=== PATIENT | female | born 1970 | race Caucasian/White ===

== ENCOUNTER 2016-09-12 10:04 | Emergency (ER) | payer OTHER ==
[~2016-09-12] VITALS: Ht 162.6 cm; Wt 154.2 kg
[~2016-09-12 10:04] MED LIST: ATENOLOL100 M1 PO; CIPRO 500MG TA500 MG PO; DILAUDID2 MG PO; FLAGYL 25O MG250 M1 PO; LASIX20 MG PO
[2016-09-12] MEDS ORDERED: LEVOTHYROXINE50 MCG PO (11:15)
--- NOTE | 2016-09-12 11:29 | ED GI/GU/ABDOMINAL COMPLAINT ---
History of Present Illness General Chief Complaint: Abdominal Pain/Flank Pain Stated Complaint: ABD PAIN Source: patient, old records Exam Limitations: no limitations Vital Signs & Intake/Output Vital Signs & Intake/Output Vital Signs Date Time Temp Pulse Resp B/P Pulse O2 O2 Flow FiO2 Ox Delivery Rate 09/12 1626 99.6 82 18 116/72 98 Room Air 09/12 1420 98.9 80 18 120/78 98 Room Air 09/12 1315 98 Room Air 09/12 1210 98.8 73 18 112/57 98 Room Air 09/12 1016 97.8 73 16 135/81 98 Room Air Allergies Coded Allergies: acetaminophen (DOESNT WORK 09/12/16) Reconcile Medications Atenolol 100 MG TABLET 1 TAB PO DAILY HEART (Reported) Ciprofloxacin HCl (Cipro) 500 MG TABLET 1 TAB PO BID DIVERITULITIS Levothyroxine Sodium 50 MCG TABLET 1 TAB PO DAILY AC THYROID (Reported) Metronidazole (Flagyl) 500 MG TABLET 1 TAB PO TID DIVERTICULITIS Oxycodone HCl 5 MG TABLET 1-2 TAB PO Q6P PRN PAIN Triage Note: PT STATES SHE HAS HAD ABD PAIN SINCE YESTERDAY AFTERNOON. PT STATES SHE HAS DIARRHEA BUT NO NAUSEA. PT STATES SHE FELT BETTER AFTER SHE ATE YESTERDAY. Triage Nurses Notes Reviewed? yes ? n Is pt currently ? No Onset: Abrupt Duration: day(s):, getting worse, intermittent Timing: recent history Quality/Severity: moderate, sharpness, severe, pressure Location: lower abd Radiation: no radiation Activities at Onset: none Prior Abdominal Problems: similar symptoms No Modifying Factors: none HPI: 38-year-old female comes into emergency room with complaints of lower abdominal pain has been going on for the past few days but has been intermittent for the past couple weeks. Patient is a history of diverticulitis. Patient reports subjective fever at home. Denies any blood in her stool. Sharp pain in lower abdomen. Intermittent. Nonradiating. Denies any urinary symptoms. Patient reports over last couple days pain has gotten progressively worse. (JAE HERNANDEZ) Past History Travel History Traveled to [place] past 21 day No Medical History Any Pertinent Medical History? see below for history Cardiovascular: hypertension Respiratory: SLEEP APNEA Gastrointestinal: diverticulitis Renal: UTI Endocrine: hypothyroidism Surgical History Surgical History: non-contributory Psychosocial History What is your primary language Georgian Tobacco Use: Never used ETOH Use: occasional use Illicit Drug Use: denies illicit drug use Family History Hx Contributory? No (JAE HERNANDEZ) Review of Systems Review of Systems Constitutional: Reports: no symptoms. EENTM: Reports: no symptoms. Respiratory: Reports: no symptoms. Cardiovascular: Reports: no symptoms. GI: Reports: see HPI. Genitourinary: Reports: no symptoms. Musculoskeletal: Reports: no symptoms. Skin: Reports: no symptoms. Neurological/Psychological: Reports: no symptoms. Hematologic/Endocrine: Reports: no symptoms. Immunologic/Allergic: Reports: no symptoms. All Other Systems: Reviewed and Negative (JAE HERNANDEZ) Physical Exam Physical Exam General Appearance: well developed/nourished, alert, obese Head: atraumatic, normal appearance Eyes: Bilateral: normal appearance, EOMI. Ears, Nose, Throat, Mouth: hearing grossly normal Neck: normal inspection Respiratory: normal breath sounds, no respiratory distress Cardiovascular: regular rate/rhythm Gastrointestinal: soft, tenderness (right side abdomen) Back: normal inspection Extremities: normal range of motion Neurologic/Psych: awake, alert, oriented x 3, normal gait Skin: intact, normal color Core Measures ACS in differential dx? No Severe Sepsis Present: No Septic Shock Present: No (JAE HERNANDEZ) Progress Differential Diagnosis: AMI, appendicitis, bowel obstruction, colon cancer, cholecystitis, diverticulitis, gastritis, hepatitis, ischemic bowel, kidney stone, ovarian cyst, ovarian torsion, pancreatitis, PID/cervicitis, peptic ulcer , PUD/GERD, perforated viscous, SBO, UTI/pyelo Plan of Care: Orders Procedure Date/time Status URINE 09/12 112 Complete URINALYSIS 09/12 1128 Complete LIPASE 09/12 1128 Complete COMPREHENSIVE METABOLIC PANEL 09/12 1128 Complete CBC WITHOUT DIFFERENTIAL 09/12 112 Complete AMYLASE 09/12 1128 Complete Laboratory Tests 09/12/16 1149: Anion Gap 8, Estimated GFR > 60, BUN/Creatinine Ratio 17.1, Glucose 122 H, Calcium 9.0, Total Bilirubin 0.9, AST 18, ALT 34, Alkaline Phosphatase 55, Total Protein 6.7, Albumin 3.7, Globulin 3.0, Albumin/Globulin Ratio 1.2, Amylase 33, Lipase 77, CBC w Diff NO MAN DIFF REQ, RBC 4.39, MCV 88.7, MCH 30.4, RDW 12.7, MPV 8.9, Gran % 73.6, Lymphocytes % 17.8 L, Monocytes % 6.7, Eosinophils % 1.4, Basophils % 0.5, Absolute Granulocytes 7.9 H, Absolute Lymphocytes 1.9, Absolute Monocytes 0.7 H, Absolute Eosinophils 0.2, Absolute Basophils 0, PUBS MCHC 34.3, Urinalysis LIGHT H, Urine Color YEL, Urine Clarity HAZY H, Urine pH 6.0, Ur Specific [place] 1.025, Urine Protein NEG, Urine Ketones NEG, Urine Nitrite NEG, Urine Bilirubin NEG, Urine Urobilinogen 0.2, Ur Leukocyte Esterase SMALL H, Ur Microscopic SEDIMENT EXAMINED, Urine RBC RARE, Urine WBC 15-25 H, Ur Epithelial Cells MANY H, Hyaline Casts RARE H, Urine Mucus FEW, Urine Hemoglobin NEG, Urine Glucose NEG, Urine Test NEGATIVE Diagnostic Imaging: Viewed by Me: CT Scan. Discussed w/RAD: CT Scan. Radiology Impression: SERVICE DATE: 09/12/16 EXAM TYPE: CAT - CT ABD & PELVIS W IV CONTRAST EXAMINATION: CT ABDOMEN AND PELVIS WITH CONTRAST CLINICAL INFORMATION: Abdominal pain with history of diverticulitis. COMPARISON: 2013 TECHNIQUE: Multidetector volumetric imaging was performed of the abdomen and pelvis before and after the IV administration of 95 mL Optiray 320 intravenous contrast. Sagittal and coronal reformatted images were obtained on the technologist's workstation. DLP: 1657.12 mGy-cm. FINDINGS: LUNG BASES: The visualized lung bases are unremarkable. Some right basilar atelectasis is present. LIVER, GALLBLADDER, AND BILIARY TREE: There is fatty infiltration of the liver. No focal liver masses or bile duct dilatation is seen. The gallbladder is unremarkable with no evidence of radiopaque gallstones, gallbladder wall thickening, or obvious pericholecystic inflammatory changes. PANCREAS: Unremarkable. SPLEEN: Unremarkable. ADRENAL GLANDS: Unremarkable. KIDNEYS AND URETERS: The kidneys are normal in size, shape, and attenuation. No hydronephrosis, hydroureter, or calculi seen. No perinephric stranding. BLADDER: Unremarkable. GASTROINTESTINAL TRACT: Diverticular changes are noted in the colon. There is a redundant loop of sigmoid present which extends over to the right abdomen. Associated with this are significant inflammatory changes spreading out into the retroperitoneal fat surrounding this. These findings are consistent with acute diverticulitis. No drainable fluid collection is seen. No extraluminal air is seen. ABDOMINAL WALL: No significant hernia is appreciated. Tiny periumbilical hernia seen containing only fat. LYMPH NODES: Normal. VASCULAR: Unremarkable. PELVIC VISCERA: An anteverted uterus is present. A nabothian cyst is probably present. No abnormal adnexal mass is seen. OSSEOUS STRUCTURES: Unremarkable. IMPRESSION: 1. Acute uncomplicated sigmoid diverticulitis as described above. A drainable collection or extraluminal air is not seen. 2. Hepatic steatosis. DICTATED BY: THELMA BILLINGSLEY MD DATE/TIME DICTATED:09/12/161330 PRINCIPAL QUALITY ENGINEER:JERRY DATE/TIME TRANSCRIBED:1330 Initial ED EKG: none Comments: 09/12/2016 6:00:01 PM Patient clinically looks well. Nontoxic-appearing. Afebrile. No white count. Started on oral antibiotics. Referred back to her GI doctor. Return if any other concerns. (CAROLANN SALVADOR,JAE) Departure Departure Disposition: HOME OR SELF CARE Condition: Stable Clinical Impression Primary Impression: Diverticulitis Referrals: SHARYN CESPEDES DO (PCP/Family) Additional Instructions: Take ciprofloxacin and Flagyl as prescribed. Take Percocet for pain. Pickup stool softener. Return if any fever or increased pain or any other concerns worsening symptoms. Please go over all results of today's visit with your primary care doctor. Contact your primary care doctor to let them know you were here in the emergency room. There may be nonspecific findings which may not be related to your visit today here in the emergency room but may require further evaluation and chronic monitoring by your primary care doctor. If you had a laceration today the chance of foreign body always remains. You should follow-up with your primary care doctor for recheck in 3-5 days for a wound check. If you had an x-ray done there is a chance that a fracture could have been missed on initial read and you should follow-up with your primary care doctor for repeat x-rays if symptoms persist. If your blood pressure was elevated here in the emergency room please have rechecked by her primary care doctor within the next 48 hours by your primary care doctor. If you were prescribed a narcotic here in the emergency room or any type of controlled substances you're not allowed to drive while taking this medication or operate any type of heavy machinery. Narcotics can make you feel lightheaded dizziness nausea and can cause constipation. You may need to berry picker a stool softener. Thank you for choosing [facility] emergency room. Please return to the emergency room immediately if you have any other concerns worsening of symptoms. Departure Forms: Customer Survey General Discharge Information Prescriptions: Current Visit Scripts Ciprofloxacin HCl (Cipro) 1 TAB PO BID #20 TAB Metronidazole (Flagyl) 1 TAB PO TID #30 TAB Oxycodone HCl 1-2 TAB PO Q6P PRN PAIN #10 TAB (JAE HERNANDEZ) PA/FIELD ENUMERATOR Co-Sign Statement Statement: ED Attending supervision documentation- [] I saw and evaluated the patient. I have also reviewed all the pertinent lab results and diagnostic results. I agree with the findings and the plan of care as documented in the PA's/FIELD ENUMERATOR's documentation. [X] I have reviewed the ED Record and agree with the PA's/FIELD ENUMERATOR's documentation. [] Additions or exceptions (if any) to the PAs/FIELD ENUMERATOR's note and plan are summarized below: [] (JIM MAE,ROSALBA)
[2016-09-12 11:59] LABS: ABSOLUTE BASOPHIL COUNT 0 /CUMM (0.0-0.2); ABSOLUTE EOSINOPHIL COUNT 0.2 /CUMM (0.0-0.7); ABSOLUTE GRANULOCYTE CT 7.9 /CUMM (1.4-6.5); ABSOLUTE LYMPH COUNT 1.9 /CUMM (1.2-3.4); ABSOLUTE MONOCYTE COUNT 0.7 /CUMM (0.10-0.60); BASOPHIL % 0.5 % (0.0-2.0); EOSINOPHIL % 1.4 % (0-5); GRANULOCYTE % 73.6 % (42.2-75.2); MEAN CORPUSCULAR HGB 30.4 PG (27.0-31.0); MEAN CORPUSCULAR HGB CONC 34.3 G/DL (33.0-37.0); MEAN CORPUSCULAR VOLUME 88.7 FL (81.0-99.0); MEAN PLATELET VOLUME 8.9 FL (7.4-10.4); PLATELET COUNT 205 /CUMM (130-400); RBC DISTRIBUTION WIDTH 12.7 % (11.5-14.5); RED BLOOD CELL CT 4.39 /CUMM (4.20-5.40); WHITE BLOOD CELL COUNT 10.8 /CUMM (4.8-10.8)
--- NOTE | 2016-09-12 15:32 | CT SCAN REPORT ---
EXAMINATION: CT ABDOMEN AND PELVIS WITH CONTRAST CLINICAL INFORMATION: Abdominal pain with history of diverticulitis. COMPARISON: 04/08/2014 TECHNIQUE: Multidetector volumetric imaging was performed of the abdomen and pelvis before and after the IV administration of 95 mL Optiray 320 intravenous contrast. Sagittal and coronal reformatted images were obtained on the technologist's workstation. DLP: 1657.12 mGy-cm. FINDINGS: LUNG BASES: The visualized lung bases are unremarkable. Some right basilar atelectasis is present. LIVER, GALLBLADDER, AND BILIARY TREE: There is fatty infiltration of the liver. No focal liver masses or bile duct dilatation is seen. The gallbladder is unremarkable with no evidence of radiopaque gallstones, gallbladder wall thickening, or obvious pericholecystic inflammatory changes. PANCREAS: Unremarkable. SPLEEN: Unremarkable. ADRENAL GLANDS: Unremarkable. KIDNEYS AND URETERS: The kidneys are normal in size, shape, and attenuation. No hydronephrosis, hydroureter, or calculi seen. No perinephric stranding. BLADDER: Unremarkable. GASTROINTESTINAL TRACT: Diverticular changes are noted in the colon. There is a redundant loop of sigmoid present which extends over to the right abdomen. Associated with this are significant inflammatory changes spreading out into the retroperitoneal fat surrounding this. These findings are consistent with acute diverticulitis. No drainable fluid collection is seen. No extraluminal air is seen. ABDOMINAL WALL: No significant hernia is appreciated. Tiny periumbilical hernia seen containing only fat. LYMPH NODES: Normal. VASCULAR: Unremarkable. PELVIC VISCERA: An anteverted uterus is present. A nabothian cyst is probably present. No abnormal adnexal mass is seen. OSSEOUS STRUCTURES: Unremarkable. IMPRESSION: 1. Acute uncomplicated sigmoid diverticulitis as described above. A drainable collection or extraluminal air is not seen. 2. Hepatic steatosis.
[2016-09-12] MEDS ORDERED: CIPRO500 M1 PO (15:50)
[2016-09-12] MEDS ORDERED: OXYCODONE HCL5 M1 PO (15:50)
[2016-09-12] MEDS ORDERED: FLAGYL500 MG PO (15:50)
[2016-09-12 16:26] VITALS: BP 116/72
== END 2016-09-12 17:12 ==
LOC: ERH 10:04
PROVIDERS: Physician Assistant Medical
DX: K57.92 Diverticulitis of intestine, part unspecified, without perforation or abscess without bleeding (principal); I10 Essential (primary) hypertension; E03.9 Hypothyroidism, unspecified
CPT/HCPCS: 74177; 81001; 81025; 96374; 96375